=== PATIENT | female | born 1970 | race African-American/Black ===

== ENCOUNTER 2016-09-23 10:48 | Emergency (ER) | payer MEDICAID ==
[~2016-09-23] VITALS: Ht 162.6 cm; Wt 70.0 kg
[~2016-09-23 10:48] MED LIST: ALBU17AE26; AMLO5TAB4; HYDR1POW18; PREDNISONE
[2016-09-23] MEDS ORDERED: IPRATROPIUM/ALBUTEROL 0.5-3(2.5)MG/3ML NEB HHN ONE (11:15)
[2016-09-23 11:19] LABS: EOSINOPHILS % 8.1 % (0.0-5.0); HEMATOCRIT. 34.7 % (36.0-48.0); HEMOGLOBIN. 11.4 g/dL (12.0-16.0); LYMPHOCYTES % 33.9 % (20.0-50.0); MEAN CORPUSCULAR HEMOGLOBIN 28.9 pg (28.0-32.0); MEAN CORPUSCULAR VOLUME 88.3 fL (81.0-99.0); MEAN PLATELET VOLUME 8.9 fl (7.4-10.4); MONOCYTES % 5.3 % (2.0-8.0); NEUTROPHILS % 51.7 % (40.0-76.0); PLATELET 353 x1000/uL (130-400); RED BLOOD CELL COUNT 3.94 mill/uL (4.2-5.4); RED CELL DISTRIBUTION WIDTH 18.1 % (11.6-14.6)
[2016-09-23 11:26] LABS: CHLORIDE 104 mEq/L (98-107)
[2016-09-23 11:27] LABS: PROTHROMBIN TIME 10.4 sec
[2016-09-23 11:31] LABS: CARBON DIOXIDE 30 mEq/L (21-32)
[2016-09-23 12:28] VITALS: BP 149/83
== END 2016-09-23 13:09 | disposition home or self-care (01) ==
LOC: ER 10:56
DX: J44.1 Chronic obstructive pulmonary disease with (acute) exacerbation (principal); J45.909 Unspecified asthma, uncomplicated; E78.00 Pure hypercholesterolemia, unspecified; Z88.6 Allergy status to analgesic agent; Z88.2 Allergy status to sulfonamides; Z88.8 Allergy status to other drugs, medicaments and biological substances
CPT/HCPCS: 36415; 71010; 80053; 85025; 85610; 94640; 99285; Z7610; J7620

== ENCOUNTER 2016-11-20 17:23 | Emergency (ER) | payer MEDICAID ==
[~2016-11-20] VITALS: Ht 160 cm; Wt 86.0 kg
[~2016-11-20 17:23] MED LIST changes: -ALBU17AE26; +ALBU17AE26 INH; -AMLO5TAB4; +BENA20TA3 PO; +CARI350T PO; +DIPH25CA83 PO; +HYDR-523 PO; +HYDR12.529 PO; -HYDR1POW18; +OMEP20CA10 PO; -PREDNISONE; +TIOT18CA3 INH
[2016-11-20 17:31] VITALS: BP 144/89
== END 2016-11-20 22:45 | disposition left against medical advice (07) ==
LOC: ER 17:31
DX: M25.511 Pain in right shoulder (principal); Z53.21 Procedure and treatment not carried out due to patient leaving prior to being seen by health care provider

== ENCOUNTER 2017-02-01 11:37 | Emergency (ER) | payer MEDICAID ==
[~2017-02-01] VITALS: Ht 160 cm; Wt 89.0 kg
[2017-02-01 16:30] VITALS: BP 142/90
== END 2017-02-01 16:30 | disposition home or self-care (01) ==
LOC: ER 12:58
DX: J06.9 Acute upper respiratory infection, unspecified (principal); B35.1 Tinea unguium; J44.9 Chronic obstructive pulmonary disease, unspecified; Z88.1 Allergy status to other antibiotic agents; Z88.2 Allergy status to sulfonamides; Z88.6 Allergy status to analgesic agent
CPT/HCPCS: 99283

== ENCOUNTER 2017-05-23 08:41 | Emergency (ER) | payer MEDICAID ==
[~2017-05-23] VITALS: Ht 162.6 cm; Wt 80.8 kg
[2017-05-23 08:50] VITALS: BP 158/103
[2017-05-23] MEDS ORDERED: ALBUTEROL (0.083%) 2.5MG/3ML NEB HHN STA (10:46)
[2017-05-23] MEDS ORDERED: IPRATROPIUM BROMIDE (0.02%) 0.5MG/2.5ML NEB HHN STA (10:46)
[2017-05-23] MEDS ORDERED: PREDNISONE 20MG TABLET PO STA (10:46)
[2017-05-23] MEDS ORDERED: FLUTICASONE PROPIONATE 50MCG/SPRAY BOTTLE BOTHNSTRLS SCH (11:00)
== END 2017-05-23 12:35 | disposition home or self-care (01) ==
LOC: ER 08:58
DX: J44.9 Chronic obstructive pulmonary disease, unspecified (principal); F17.210 Nicotine dependence, cigarettes, uncomplicated; Z71.6 Tobacco abuse counseling; Z88.6 Allergy status to analgesic agent; Z88.2 Allergy status to sulfonamides; Z88.8 Allergy status to other drugs, medicaments and biological substances
CPT/HCPCS: 71045; 81025; 99283; J7512; J7611

== ENCOUNTER 2017-07-17 10:47 | Emergency (ER) | payer MEDICAID ==
[~2017-07-17] VITALS: Ht 162.6 cm; Wt 85.0 kg
[2017-07-17] MEDS ORDERED: PREDNISONE 20MG TABLET PO STA (11:00)
[2017-07-17] MEDS ORDERED: IPRATROPIUM BROMIDE (0.02%) 0.5MG/2.5ML NEB HHN STA (11:00)
[2017-07-17] MEDS ORDERED: ALBUTEROL (0.083%) 2.5MG/3ML NEB HHN STA (11:00)
[2017-07-17] MEDS ORDERED: AMLODIPINE 2.5MG TABLET PO ONE (13:00)
[2017-07-17] MEDS ORDERED: ACETAMINOPHEN 500MG TABLET PO ONE (13:00)
[2017-07-17] MEDS ORDERED: ALBUTEROL (0.5%) 2.5MG/0.5ML NEB HHN ONE (15:15)
[2017-07-17 15:25] VITALS: BP 145/85
== END 2017-07-17 16:24 | disposition home or self-care (01) ==
LOC: ER 11:41
DX: J45.901 Unspecified asthma with (acute) exacerbation (principal); I10 Essential (primary) hypertension; F17.200 Nicotine dependence, unspecified, uncomplicated; Z88.6 Allergy status to analgesic agent; Z88.2 Allergy status to sulfonamides; Z88.8 Allergy status to other drugs, medicaments and biological substances; Z87.19 Personal history of other diseases of the digestive system
CPT/HCPCS: 71045; 81025; 93005; 94640; 99284; J7512; J7611; Z7610

== ENCOUNTER 2017-08-15 15:18 | Emergency (ER) | payer MEDICAID ==
[~2017-08-15] VITALS: Ht 160 cm; Wt 82.0 kg
[2017-08-15] MEDS ORDERED: PREDNISONE 20MG TABLET PO STA (16:16)
[2017-08-15] MEDS ORDERED: ALBUTEROL (0.083%) 2.5MG/3ML NEB HHN STA (16:16)
[2017-08-15 16:47] VITALS: BP 151/88
[2017-08-15 17:02] LABS: *AMPHETAMINES SCREEN URINE NEGATIVE (NEGATIVE); *BARBITURATES SCREEN URINE NEGATIVE (NEGATIVE); *BENZODIAZEPINES SCREEN URINE NEGATIVE (NEGATIVE); *COCAINE SCREEN URINE NEGATIVE (NEGATIVE)
[2017-08-15 17:03] LABS: METHADONE URINE SCREEN NEGATIVE (NEGATIVE); OPIATES URINE SCREEN NEGATIVE (NEGATIVE); PHENCYCLIDINE URINE SCREEN NEGATIVE (NEGATIVE)
[2017-08-15 17:11] LABS: CANNABINOID URINE SCREEN PRESUMTIVE POSITIVE (NEGATIVE)
== END 2017-08-15 19:50 | disposition home or self-care (01) ==
LOC: ER 19:50
DX: J20.9 Acute bronchitis, unspecified (principal); I10 Essential (primary) hypertension; Z72.0 Tobacco use; Z88.2 Allergy status to sulfonamides
CPT/HCPCS: 71045; 80305; 81025; 94640; 99285; J7512; J7611; Z7610

== ENCOUNTER 2017-08-25 10:58 | Emergency (ER) | payer MEDICAID ==
[~2017-08-25] VITALS: Ht 160 cm; Wt 84.0 kg
[2017-08-25 11:00] VITALS: BP 157/90
[2017-08-25] MEDS ORDERED: LIDOCAINE HCL 1% 20ML VIAL (Pyxis) INJ INFIL ONE (11:15)
== END 2017-08-25 12:38 | disposition home or self-care (01) ==
LOC: ER 12:12
DX: S91.201A Unspecified open wound of right great toe with damage to nail, initial encounter (principal); J44.9 Chronic obstructive pulmonary disease, unspecified; I10 Essential (primary) hypertension; Z88.2 Allergy status to sulfonamides; Z88.5 Allergy status to narcotic agent; X58.XXXA Exposure to other specified factors, initial encounter; Y93.89 Activity, other specified; Y92.89 Other specified places as the place of occurrence of the external cause; Y99.8 Other external cause status
CPT/HCPCS: 11730; 99284; J3490; X7700; Z7610

== ENCOUNTER 2018-04-25 13:24 | Emergency (ER) | payer MEDICAID ==
[~2018-04-25] VITALS: Ht 162.6 cm; Wt 71.0 kg
[~2018-04-25 13:24] MED LIST changes: +BENA20TA10 PO; -BENA20TA3 PO; -CARI350T PO; +S350 PO
[2018-04-25 15:46] VITALS: BP 141/97
== END 2018-04-25 15:47 | disposition home or self-care (01) ==
LOC: ER 13:24
DX: J31.0 Chronic rhinitis (principal); J32.9 Chronic sinusitis, unspecified; I10 Essential (primary) hypertension; J44.9 Chronic obstructive pulmonary disease, unspecified; F17.200 Nicotine dependence, unspecified, uncomplicated; Z79.899 Other long term (current) drug therapy; Z88.2 Allergy status to sulfonamides; Z88.5 Allergy status to narcotic agent; Z88.8 Allergy status to other drugs, medicaments and biological substances
CPT/HCPCS: 81025; 99283

== ENCOUNTER 2018-05-25 13:04 | Inpatient (IN) | payer MEDICAID ==
[~2018-05-25] VITALS: Ht 161.3 cm; Wt 68.9 kg
[2018-05-25] MEDS ORDERED: ONDANSETRON HCL 4MG/2ML INJ IV STA (19:00)
[2018-05-25] MEDS ORDERED: SODIUM CHLORIDE 0.9% 1,000 ML IV ONE (19:00)
[2018-05-25] MEDS ORDERED: MORPHINE SULFATE 4 MG/ML CPJ (NOT FOR IM USE) IV STA (19:00)
[2018-05-25 19:40] LABS: BASOPHILS % 0.2 % (0.0-2.0); EOSINOPHILS % 0.6 % (0.0-5.0); HEMATOCRIT. 36.9 % (36.0-48.0); HEMOGLOBIN. 11.6 g/dL (12.0-16.0); LYMPHOCYTES % 14.2 % (20.0-50.0); MEAN CORPUSCULAR HEMOGLOBIN 27.8 pg (28.0-32.0); MEAN PLATELET VOLUME 8.7 fl (7.4-10.4); MONOCYTES % 5.1 % (2.0-8.0); NEUTROPHILS % 79.9 % (40.0-76.0); PLATELET 375 x1000/uL (130-400); RED BLOOD CELL COUNT 4.19 mill/uL (4.2-5.4); RED CELL DISTRIBUTION WIDTH 20.9 % (11.6-14.6)
[2018-05-25 19:44] LABS: CHLORIDE 101 mEq/L (98-107); INR 1.1; PROTHROMBIN TIME 10.7 sec (9.1-11.1)
[2018-05-25 19:46] LABS: CLARITY URINE TURBID (CLEAR); COLOR URINE YELLOW (YELLOW); KETONES URINE 1+ (NEGATIVE); LEUKOCYTE ESTERASE URINE 3+ (NEGATIVE); NITRITE URINE POSITIVE (NEGATIVE); OCCULT BLOOD URINE 2+ (NEGATIVE); PH URINE 5.5 (4.5-8.0); PROTEIN URINE 2+ (NEGATIVE); SPECIFIC GRAVITY URINE 1.015 (1.005-1.030); UROBILINOGEN URINE 0.2 E.U./dL (0.2-1.0)
[2018-05-25 19:53] LABS: HCG SCREEN NEGATIVE
[2018-05-25] MEDS ORDERED: CEFTRIAXONE 1 G PREMIX 50 ML IV ONE (20:15)
[2018-05-25] MEDS ORDERED: SODIUM CHLORIDE 0.9% 1000ML BAG (SEPSIS BOLUS) IV ONE (20:15)
[2018-05-25] MEDS ORDERED: MAGNESIUM/ALUMINUM HYDROXIDE/SIMETHICONE 30ML UDC PO PRN (22:00)
[2018-05-25] MEDS ORDERED: CEFTRIAXONE 1 G PREMIX 50 ML IV SCH (22:00)
[2018-05-25] MEDS ORDERED: DOCUSATE SODIUM 100MG CAPSULE PO PRN (22:00)
[2018-05-25] MEDS ORDERED: IPRATROPIUM/ALBUTEROL 0.5-3(2.5)MG/3ML NEB INH PRN (22:00)
[2018-05-25 22:09] LABS: CHLORIDE 105 mEq/L (98-107)
[2018-05-25 22:17] LABS: CREATINE KINASE 44 IU/L (26-192)
[2018-05-25 22:20] LABS: CREATINE KINASE MB FRACTION < 1.0 ng/mL (0.5-3.6)
[2018-05-25 23:30] VITALS: BP 210/105
[2018-05-26] MEDS: HYDROCODONE/ACETAMINOPHEN 5/325MG TABLET PO PRN ×3 (00:01→16:36)
[2018-05-26] MEDS: CLONIDINE 0.1MG TABLET PO PRN ×2 (00:01→20:53)
[2018-05-26 01:00] VITALS: BP 145/66
[2018-05-26] MEDS: SODIUM CHLORIDE 0.9% 1,000 ML IV SCH ×3 (01:56→20:30)
[2018-05-26 04:00] VITALS: BP 97/52
[2018-05-26 06:58] LABS: BASOPHILS % 0.2 % (0.0-2.0); EOSINOPHILS % 0.1 % (0.0-5.0); HEMATOCRIT. 28.4 % (36.0-48.0); LYMPHOCYTES % 11.3 % (20.0-50.0); MEAN CORPUSCULAR VOLUME 87.9 fL (81.0-99.0); MEAN PLATELET VOLUME 9.1 fl (7.4-10.4); MONOCYTES % 8.3 % (2.0-8.0); NEUTROPHILS % 80.1 % (40.0-76.0); PLATELET 282 x1000/uL (130-400); RED BLOOD CELL COUNT 3.23 mill/uL (4.2-5.4); RED CELL DISTRIBUTION WIDTH 20.4 % (11.6-14.6)
[2018-05-26 07:24] LABS: LDL CHOLESTEROL 68 mg/dL (5-100)
[2018-05-26 07:25] LABS: CREATINE KINASE 37 IU/L (26-192); HDL CHOLESTEROL 38 mg/dL (40-59)
[2018-05-26 07:27] LABS: CREATINE KINASE MB FRACTION < 1.0 ng/mL (0.5-3.6)
[2018-05-26] MEDS: ENOXAPARIN 40MG/0.4ML SYR SUBCUT SCH (09:11)
[2018-05-26 09:36] LABS: *AMPHETAMINES SCREEN URINE NEGATIVE (NEGATIVE); *BARBITURATES SCREEN URINE NEGATIVE (NEGATIVE); *BENZODIAZEPINES SCREEN URINE NEGATIVE (NEGATIVE)
[2018-05-26 09:37] LABS: *COCAINE SCREEN URINE NEGATIVE (NEGATIVE); CANNABINOID URINE SCREEN NEGATIVE (NEGATIVE); METHADONE URINE SCREEN NEGATIVE (NEGATIVE); OPIATES URINE SCREEN NEGATIVE (NEGATIVE); PHENCYCLIDINE URINE SCREEN NEGATIVE (NEGATIVE)
[2018-05-26 12:00] VITALS: BP 110/66
[2018-05-26 16:02] VITALS: BP 131/72
[2018-05-26] MEDS ORDERED: POTASSIUM CHLORIDE 20MEQ TABLET SR PO NR (16:30)
[2018-05-26] MEDS: OMEPRAZOLE 20MG CAPSULE EXTENDED RELEASE PO SCH (16:41)
[2018-05-26 20:00] VITALS: BP 164/90
[2018-05-26] MEDS: ACETAMINOPHEN 325MG TABLET PO PRN (20:53)
[2018-05-26 20:57] LABS: TOTAL IRON BINDING CAPACITY 282 ug/dL (250-450)
[2018-05-26 20:58] LABS: CREATINE KINASE 43 IU/L (26-192)
[2018-05-26 21:00] LABS: CREATINE KINASE MB FRACTION < 1.0 ng/mL (0.5-3.6)
[2018-05-26 21:29] LABS: FOLIC ACID (FOLATE) SERUM 10.9 ng/mL (>5.38)
[2018-05-26] MEDS: CEFTRIAXONE 1 G PREMIX 50 ML IV SCH (21:51)
[2018-05-27] VITALS: BP 114/63
[2018-05-27] MEDS: SODIUM CHLORIDE 0.9% 1,000 ML IV SCH ×2 (05:08→14:14)
[2018-05-27 05:23] VITALS: BP 144/85
[2018-05-27] MEDS: HYDROCODONE/ACETAMINOPHEN 5/325MG TABLET PO PRN ×2 (05:25→11:52)
[2018-05-27 06:30] LABS: CHLORIDE 105 mEq/L (98-107)
[2018-05-27 07:02] LABS: BASOPHILS % 0.6 % (0.0-2.0); EOSINOPHILS % 1.1 % (0.0-5.0); HEMATOCRIT. 27.1 % (36.0-48.0); HEMOGLOBIN. 8.8 g/dL (12.0-16.0); LYMPHOCYTES % 13.1 % (20.0-50.0); MEAN CORPUSCULAR HEMOGLOBIN 28.4 pg (28.0-32.0); MEAN CORPUSCULAR VOLUME 87.1 fL (81.0-99.0); MEAN PLATELET VOLUME 9.5 fl (7.4-10.4); MONOCYTES % 7.6 % (2.0-8.0); NEUTROPHILS % 77.6 % (40.0-76.0); PLATELET 244 x1000/uL (130-400); RED BLOOD CELL COUNT 3.11 mill/uL (4.2-5.4); RED CELL DISTRIBUTION WIDTH 19.8 % (11.6-14.6)
[2018-05-27 07:49] VITALS: BP 129/79
[2018-05-27] MEDS: ENOXAPARIN 40MG/0.4ML SYR SUBCUT SCH (08:37)
[2018-05-27] MEDS: OMEPRAZOLE 20MG CAPSULE EXTENDED RELEASE PO SCH (08:37)
[2018-05-27 11:39] VITALS: BP 123/89
[2018-05-27] MEDS ORDERED: KETOROLAC 30MG/ML VIAL IV PRN (15:00)
[2018-05-27] MEDS ORDERED: POTASSIUM CHLORIDE 20MEQ TABLET SR PO NR (15:45)
[2018-05-27 15:58] VITALS: BP 138/88
[2018-05-27] MEDS: DOCUSATE SODIUM 100MG CAPSULE PO SCH (16:10)
[2018-05-27] MEDS: MORPHINE SULFATE 4 MG/ML CPJ (NOT FOR IM USE) IV PRN ×2 (16:12→21:47)
[2018-05-27] MEDS: FERROUS SULFATE 325MG TABLET PO SCH (17:22)
[2018-05-27 20:00] VITALS: BP 167/82
[2018-05-27] MEDS: ONDANSETRON HCL 4MG/2ML INJ IV PRN (20:15)
[2018-05-27] MEDS: CLONIDINE 0.1MG TABLET PO PRN (20:16)
[2018-05-27] MEDS: ACETAMINOPHEN 325MG TABLET PO PRN (20:16)
[2018-05-27] MEDS: CEFTRIAXONE 1 G PREMIX 50 ML IV SCH (21:46)
[2018-05-28] VITALS: BP 120/77
[2018-05-28] MEDS: SODIUM CHLORIDE 0.9% 1,000 ML IV SCH ×4 (02:30→21:21)
[2018-05-28 04:20] VITALS: BP 152/89
[2018-05-28 07:03] LABS: EOSINOPHILS % 7.8 % (0.0-5.0); HEMATOCRIT. 28.8 % (36.0-48.0); HEMOGLOBIN. 9.2 g/dL (12.0-16.0); LYMPHOCYTES % 27.9 % (20.0-50.0); MEAN CORPUSCULAR HEMOGLOBIN 27.9 pg (28.0-32.0); MEAN CORPUSCULAR VOLUME 88.1 fL (81.0-99.0); MEAN PLATELET VOLUME 9.6 fl (7.4-10.4); MONOCYTES % 12.5 % (2.0-8.0); NEUTROPHILS % 50.8 % (40.0-76.0); PLATELET 243 x1000/uL (130-400); RED BLOOD CELL COUNT 3.27 mill/uL (4.2-5.4); RED CELL DISTRIBUTION WIDTH 19.9 % (11.6-14.6)
[2018-05-28 07:09] LABS: CHLORIDE 109 mEq/L (98-107)
[2018-05-28 07:53] VITALS: BP 156/83
[2018-05-28] MEDS: ENOXAPARIN 40MG/0.4ML SYR SUBCUT SCH (08:06)
[2018-05-28] MEDS: OMEPRAZOLE 20MG CAPSULE EXTENDED RELEASE PO SCH (08:06)
[2018-05-28] MEDS: DOCUSATE SODIUM 100MG CAPSULE PO SCH ×2 (08:06→16:47)
[2018-05-28] MEDS: FERROUS SULFATE 325MG TABLET PO SCH ×3 (08:06→16:47)
[2018-05-28] MEDS: MORPHINE SULFATE 4 MG/ML CPJ (NOT FOR IM USE) IV PRN ×2 (08:06→13:15)
[2018-05-28] MEDS: BENZONATATE 100MG CAPSULE PO PRN ×2 (08:14→21:34)
[2018-05-28 12:00] VITALS: BP 149/88
[2018-05-28 16:00] VITALS: BP 167/108
[2018-05-28] MEDS: CLONIDINE 0.1MG TABLET PO PRN ×2 (16:47→21:08)
[2018-05-28] MEDS: ACETAMINOPHEN 325MG TABLET PO PRN (16:51)
[2018-05-28 20:00] VITALS: BP 143/91
[2018-05-28] MEDS: CEFTRIAXONE 1 G PREMIX 50 ML IV SCH (21:08)
[2018-05-28] MEDS ORDERED: GUAIFENESIN-DM 200MG-20MG/10ML UDC PO PRN (22:15)
[2018-05-29] VITALS: BP 157/84
[2018-05-29] MEDS: ONDANSETRON HCL 4MG/2ML INJ IV PRN (03:19)
[2018-05-29] MEDS: MORPHINE SULFATE 4 MG/ML CPJ (NOT FOR IM USE) IV PRN ×2 (03:24→14:37)
[2018-05-29] MEDS: CLONIDINE 0.1MG TABLET PO PRN (03:27)
[2018-05-29 04:00] VITALS: BP 183/110
[2018-05-29 07:08] LABS: BASOPHILS % 0.5 % (0.0-2.0); EOSINOPHILS % 3.6 % (0.0-5.0); HEMATOCRIT. 25.8 % (36.0-48.0); HEMOGLOBIN. 8.4 g/dL (12.0-16.0); LYMPHOCYTES % 18.1 % (20.0-50.0); MEAN CORPUSCULAR HEMOGLOBIN 28.2 pg (28.0-32.0); MEAN CORPUSCULAR VOLUME 86.9 fL (81.0-99.0); MEAN PLATELET VOLUME 9.8 fl (7.4-10.4); MONOCYTES % 10.8 % (2.0-8.0); PLATELET 265 x1000/uL (130-400); RED BLOOD CELL COUNT 2.98 mill/uL (4.2-5.4); RED CELL DISTRIBUTION WIDTH 19.7 % (11.6-14.6)
[2018-05-29 07:57] LABS: CHLORIDE 104 mEq/L (98-107)
[2018-05-29] MEDS: FERROUS SULFATE 325MG TABLET PO SCH ×3 (09:04→17:40)
[2018-05-29] MEDS: DOCUSATE SODIUM 100MG CAPSULE PO SCH ×2 (09:04→17:00)
[2018-05-29] MEDS: ACETAMINOPHEN 325MG TABLET PO PRN (09:04)
[2018-05-29] MEDS: OMEPRAZOLE 20MG CAPSULE EXTENDED RELEASE PO SCH (09:04)
[2018-05-29] MEDS: ENOXAPARIN 40MG/0.4ML SYR SUBCUT SCH (09:05)
[2018-05-29 13:07] LABS: HIV SCREEN 4G Non Reactive (Non Reactive)
[2018-05-29] MEDS ORDERED: BENAZEPRIL 10MG TABLET PO SCH (14:00)
[2018-05-29] MEDS ORDERED: HYDROCHLOROTHIAZIDE 12.5MG CAPSULE PO SCH (14:00)
[2018-05-29] MEDS: SODIUM CHLORIDE 0.9% 1,000 ML IV SCH ×2 (14:01→18:30)
[2018-05-29] MEDS ORDERED: DOCU-138 PO (14:04)
[2018-05-29] MEDS ORDERED: NITR-87 MT (14:04)
[2018-05-29] MEDS ORDERED: FERR325T23 PO (14:04)
[2018-05-29 16:00] VITALS: BP 154/84
[2018-05-29 17:02] VITALS: BP 150/84
== END 2018-05-29 18:20 | disposition home or self-care (01) | DRG 720 ==
LOC: ER 13:04 → 8WST 21:17 → ENRESERV 21:37
PROVIDERS: ADMIT Internal Medicine; ATTEND Internal Medicine
DX: A41.9 Sepsis, unspecified organism (principal); E87.2 Acidosis; N13.6 Pyonephrosis; J06.9 Acute upper respiratory infection, unspecified; K29.70 Gastritis, unspecified, without bleeding; E87.6 Hypokalemia; E78.5 Hyperlipidemia, unspecified; I16.1 Hypertensive emergency; J44.9 Chronic obstructive pulmonary disease, unspecified; D50.9 Iron deficiency anemia, unspecified; I10 Essential (primary) hypertension; R79.1 Abnormal coagulation profile; Z87.891 Personal history of nicotine dependence; Z88.2 Allergy status to sulfonamides; Z88.8 Allergy status to other drugs, medicaments and biological substances; Z86.73 Personal history of transient ischemic attack (TIA), and cerebral infarction without residual deficits; Z87.442 Personal history of urinary calculi; Z79.899 Other long term (current) drug therapy
CPT/HCPCS: 36415; 74176; 80048; 80061; 80305; 82270; 82550; 82553; 82607; 82728; 82746; 83540; 83550; 83605; 83735; 84145; 84443; 84484; 84703; 85044; 85379; 87077; 87186; 87389; 93005; 93970; 94640; 96361; 96365; 96375; 99285; C1893; J0696; J1650; J2270; J2405; J7030

== ENCOUNTER 2018-05-30 03:13 | Emergency (ER) | payer MEDICAID ==
[~2018-05-30] VITALS: Ht 160 cm; Wt 72.0 kg
[~2018-05-30 03:13] MED LIST changes: +DOCU-138 PO; +FERR325T23 PO; +NITR-87 MT
[2018-05-30] MEDS ORDERED: SODIUM CHLORIDE 0.9% 1,000 ML IV ONE (06:46)
[2018-05-30] MEDS ORDERED: ONDANSETRON HCL 4MG/2ML INJ IV STA (06:46)
[2018-05-30] MEDS ORDERED: MORPHINE SULFATE 4 MG/ML CPJ (NOT FOR IM USE) IV STA (06:46)
[2018-05-30 07:10] LABS: CHLORIDE 101 mEq/L (98-107)
[2018-05-30 07:14] LABS: BASOPHILS % 0.5 % (0.0-2.0); EOSINOPHILS % 5.1 % (0.0-5.0); HEMATOCRIT. 29.3 % (36.0-48.0); HEMOGLOBIN. 9.3 g/dL (12.0-16.0); LYMPHOCYTES % 21.6 % (20.0-50.0); MEAN CORPUSCULAR HEMOGLOBIN 27.8 pg (28.0-32.0); MEAN CORPUSCULAR VOLUME 87.2 fL (81.0-99.0); MONOCYTES % 9.5 % (2.0-8.0); NEUTROPHILS % 63.3 % (40.0-76.0); PLATELET 321 x1000/uL (130-400); RED BLOOD CELL COUNT 3.36 mill/uL (4.2-5.4); RED CELL DISTRIBUTION WIDTH 20.1 % (11.6-14.6)
[2018-05-30 07:32] LABS: HCG SCREEN NEGATIVE
[2018-05-30 07:36] LABS: CLARITY URINE CLEAR (CLEAR); COLOR URINE YELLOW (YELLOW); KETONES URINE NEGATIVE (NEGATIVE); LEUKOCYTE ESTERASE URINE NEGATIVE (NEGATIVE); NITRITE URINE NEGATIVE (NEGATIVE); OCCULT BLOOD URINE NEGATIVE (NEGATIVE); PH URINE 7.5 (4.5-8.0); PROTEIN URINE NEGATIVE (NEGATIVE); UROBILINOGEN URINE 0.2 E.U./dL (0.2-1.0)
[2018-05-30] MEDS ORDERED: KETOROLAC 30MG/ML VIAL IV ONE (10:00)
[2018-05-30 10:42] VITALS: BP 142/103
== END 2018-05-30 10:45 | disposition home or self-care (01) ==
LOC: ER 03:13
DX: R10.9 Unspecified abdominal pain (principal); R11.2 Nausea with vomiting, unspecified; R19.7 Diarrhea, unspecified; J44.9 Chronic obstructive pulmonary disease, unspecified; I10 Essential (primary) hypertension; Z98.890 Other specified postprocedural states; Z79.899 Other long term (current) drug therapy; Z88.2 Allergy status to sulfonamides; Z88.5 Allergy status to narcotic agent; Z88.6 Allergy status to analgesic agent
CPT/HCPCS: 36415; 74176; 80053; 81003; 81025; 83690; 84703; 85025; 85610; 96361; 96374; 96375; 99284; J1885; J2270; J2405; J7030

== ENCOUNTER 2018-07-11 12:51 | Emergency (ER) | payer MEDICAID ==
[~2018-07-11] VITALS: Ht 165.1 cm; Wt 68.0 kg
[2018-07-11 13:40] VITALS: BP 161/107
[2018-07-11] MEDS ORDERED: CEFTRIAXONE SODIUM 250 MG/VIAL IM ONE (16:00)
[2018-07-11] MEDS ORDERED: AZITHROMYCIN 500 MG TABLET PO ONE (16:00)
[2018-07-11 16:05] LABS: CLARITY URINE CLEAR (CLEAR); COLOR URINE YELLOW (YELLOW); KETONES URINE NEGATIVE (NEGATIVE); LEUKOCYTE ESTERASE URINE NEGATIVE (NEGATIVE); NITRITE URINE NEGATIVE (NEGATIVE); OCCULT BLOOD URINE NEGATIVE (NEGATIVE); PROTEIN URINE NEGATIVE (NEGATIVE); SPECIFIC GRAVITY URINE 1.014 (1.005-1.030); UROBILINOGEN URINE 0.2 E.U./dL (0.2-1.0)
[2018-07-14 04:14] LABS: CHLAMYDIA TRACHOMATIS NAA Negative (Negative); NEISSERIA GONORRHOEAE NAA Negative (Negative)
== END 2018-07-11 16:57 | disposition home or self-care (01) ==
LOC: ER 12:51
DX: N76.0 Acute vaginitis (principal); J45.909 Unspecified asthma, uncomplicated; J44.9 Chronic obstructive pulmonary disease, unspecified; I10 Essential (primary) hypertension
CPT/HCPCS: 81003; 81025; 87210; 87491; 87591; 96372; 99283; J0696

== ENCOUNTER 2018-08-03 14:23 | Emergency (ER) | payer MEDICAID ==
[~2018-08-03] VITALS: Ht 162.6 cm; Wt 67.0 kg
[2018-08-03] MEDS ORDERED: ACETAMINOPHEN 325MG TABLET PO ONE (18:45)
[2018-08-03 19:16] LABS: CLARITY URINE CLEAR (CLEAR); COLOR URINE YELLOW (YELLOW); KETONES URINE TRACE (NEGATIVE); LEUKOCYTE ESTERASE URINE NEGATIVE (NEGATIVE); NITRITE URINE NEGATIVE (NEGATIVE); OCCULT BLOOD URINE NEGATIVE (NEGATIVE); PH URINE 5.5 (4.5-8.0); PROTEIN URINE NEGATIVE (NEGATIVE); SPECIFIC GRAVITY URINE 1.023 (1.005-1.030); UROBILINOGEN URINE 0.2 E.U./dL (0.2-1.0)
[2018-08-03 19:54] VITALS: BP 152/99
== END 2018-08-03 19:55 | disposition home or self-care (01) ==
LOC: ER 14:28
DX: J06.9 Acute upper respiratory infection, unspecified (principal); R10.9 Unspecified abdominal pain; J44.9 Chronic obstructive pulmonary disease, unspecified; E78.00 Pure hypercholesterolemia, unspecified; I10 Essential (primary) hypertension; F17.200 Nicotine dependence, unspecified, uncomplicated; Z88.2 Allergy status to sulfonamides; Z88.6 Allergy status to analgesic agent
CPT/HCPCS: 99283

== ENCOUNTER 2018-08-08 08:12 | Emergency (ER) | payer MEDICAID ==
[~2018-08-08] VITALS: Ht 162.6 cm; Wt 66.0 kg
[2018-08-08 09:56] LABS: CLARITY URINE CLOUDY (CLEAR); COLOR URINE AMBER (YELLOW); KETONES URINE TRACE (NEGATIVE); LEUKOCYTE ESTERASE URINE NEGATIVE (NEGATIVE); NITRITE URINE NEGATIVE (NEGATIVE); OCCULT BLOOD URINE NEGATIVE (NEGATIVE); PROTEIN URINE 1+ (NEGATIVE); SPECIFIC GRAVITY URINE 1.026 (1.005-1.030); UROBILINOGEN URINE 0.2 E.U./dL (0.2-1.0)
[2018-08-08] MEDS ORDERED: MORPHINE SULFATE 4 MG/ML CPJ (NOT FOR IM USE) IV STA (10:24)
[2018-08-08] MEDS ORDERED: ONDANSETRON HCL 4MG/2ML INJ IV STA (10:24)
[2018-08-08 10:45] LABS: EOSINOPHILS % 4.6 % (0.0-5.0); HEMATOCRIT. 35.5 % (36.0-48.0); HEMOGLOBIN. 11.3 g/dL (12.0-16.0); LYMPHOCYTES % 33.2 % (20.0-50.0); MEAN CORPUSCULAR HEMOGLOBIN 27.8 pg (28.0-32.0); MEAN CORPUSCULAR VOLUME 87.3 fL (81.0-99.0); MEAN PLATELET VOLUME 8.5 fl (7.4-10.4); MONOCYTES % 6.8 % (2.0-8.0); NEUTROPHILS % 54.4 % (40.0-76.0); PLATELET 337 x1000/uL (130-400); RED BLOOD CELL COUNT 4.06 mill/uL (4.2-5.4)
[2018-08-08 10:51] LABS: CHLORIDE 107 mEq/L (98-107)
[2018-08-08 10:53] LABS: PROTHROMBIN TIME 10.2 sec (9.6-11.0)
[2018-08-08 11:10] LABS: HCG SCREEN NEGATIVE
[2018-08-08] MEDS ORDERED: IOHEXOL-350 100 ML BOTTLE ONE (11:45)
[2018-08-08 12:40] VITALS: BP 164/91
== END 2018-08-08 12:41 | disposition home or self-care (01) ==
LOC: ER 08:12
DX: J93.9 Pneumothorax, unspecified (principal); I10 Essential (primary) hypertension; F17.200 Nicotine dependence, unspecified, uncomplicated; J45.909 Unspecified asthma, uncomplicated; Z88.2 Allergy status to sulfonamides; Z79.899 Other long term (current) drug therapy; Z88.6 Allergy status to analgesic agent; Z88.8 Allergy status to other drugs, medicaments and biological substances
CPT/HCPCS: 36415; 71045; 71275; 80053; 81003; 81025; 83690; 83880; 84484; 84703; 85025; 85610; 93005; 96374; 96375; 99284; J2270; J2405; Q9967

== ENCOUNTER 2022-08-09 08:26 | Emergency (ER) | payer MEDICAID ==
[~2022-08-09] VITALS: Ht 160 cm; Wt 98.0 kg
[~2022-08-09 08:26] MED LIST changes: +BENA-8 PO; -BENA20TA10 PO; +CARI350T28 PO; -OMEP20CA10 PO; +OMEP20CA14 PO; -S350 PO
[2022-08-09 08:50] VITALS: BP 202/111
[2022-08-09 09:41] LABS: CLARITY URINE CLEAR (CLEAR); COLOR URINE YELLOW (YELLOW); KETONES URINE TRACE (NEGATIVE); LEUKOCYTE ESTERASE URINE NEGATIVE (NEGATIVE); NITRITE URINE NEGATIVE (NEGATIVE); OCCULT BLOOD URINE NEGATIVE (NEGATIVE); PROTEIN URINE TRACE (NEGATIVE); UROBILINOGEN URINE 0.2 E.U./dL (0.2-1.0)
[2022-08-09] MEDS ORDERED: AMOX1TAB16 MT ×2 (09:48→11:37)
== END 2022-08-09 10:04 | disposition home or self-care (01) ==
LOC: ER 08:26
DX: J32.9 Chronic sinusitis, unspecified (principal); J44.1 Chronic obstructive pulmonary disease with (acute) exacerbation; I11.0 Hypertensive heart disease with heart failure; I50.9 Heart failure, unspecified; Z88.6 Allergy status to analgesic agent; Z88.2 Allergy status to sulfonamides; Z88.5 Allergy status to narcotic agent; Z79.899 Other long term (current) drug therapy
CPT/HCPCS: 81003; 99283

== ENCOUNTER 2022-09-06 10:18 | Emergency (ER) | payer MEDICAID ==
[~2022-09-06] VITALS: Ht 160 cm; Wt 91.0 kg
[~2022-09-06 10:18] MED LIST changes: +AMOX1TAB16 MT
[2022-09-06] MEDS ORDERED: IPRATROPIUM/ALBUTEROL 0.5-3(2.5)MG/3ML NEB HHN ONE (10:45)
[2022-09-06] MEDS ORDERED: PREDNISONE 20MG TABLET PO ONE (10:45)
[2022-09-06] MEDS ORDERED: P50 MT (12:06)
[2022-09-06] MEDS ORDERED: ALBU6.7H3 INH (12:06)
[2022-09-06 12:29] VITALS: BP 115/86
== END 2022-09-06 12:31 | disposition home or self-care (01) ==
LOC: ER 10:18
DX: J44.1 Chronic obstructive pulmonary disease with (acute) exacerbation (principal); M25.531 Pain in right wrist; I11.0 Hypertensive heart disease with heart failure; I50.9 Heart failure, unspecified; Z88.5 Allergy status to narcotic agent; Z88.6 Allergy status to analgesic agent; Z88.2 Allergy status to sulfonamides; Z79.899 Other long term (current) drug therapy
CPT/HCPCS: 71045; 73110; 73130; 81025; 94640; 99284; J7512; Z7610

== ENCOUNTER 2022-11-17 20:40 | Emergency (ER) | payer MEDICAID ==
[~2022-11-17] VITALS: Ht 160 cm; Wt 85.0 kg
[~2022-11-17 20:40] MED LIST changes: +ALBU6.7H3 INH; +P50 MT
[2022-11-17 21:11] VITALS: BP 205/109; PULSE 116; RESP 16; TEMP 98.4; O2SAT 98
== END 2022-11-17 22:31 | disposition home or self-care (01) ==
LOC: ER 20:40
DX: K13.0 Diseases of lips (principal); Z00.00 Encounter for general adult medical examination without abnormal findings; Z88.2 Allergy status to sulfonamides; Z88.6 Allergy status to analgesic agent; Z88.5 Allergy status to narcotic agent; Z88.8 Allergy status to other drugs, medicaments and biological substances
CPT/HCPCS: 99281